=== PATIENT | female | born 2000 | race Caucasian/White ===

== ENCOUNTER 2022-03-17 14:39 | Emergency (ER) | payer OTHER, SELFPAY ==
[2022-03-17 14:43] VITALS: BP 133/81; PULSE 101; RESP 15; TEMP 36.5; O2SAT 100; BMI 21.9
--- NOTE | 2022-03-17 15:28 | ED_ITS ---
HPI - URI/Sore Throat <Bree Villa, [facility] - Last Filed: 03/17/22 17:43> General Chief Complaint: Upper Respiratory Symptoms Stated Complaint: chest congestion, cough, Time Seen by Provider: 03/17/22 14:51 Source: patient Mode of arrival: Ambulatory History of Present Illness HPI Narrative: This is a 21-year-old female presents emergency department with 7 days of upper respiratory illness. She states it started 1 week ago with a sore throat, it has progressed with nasal drainage, fever, chills, states that she had vomited 1 time last night. She has a cough, states that she has copious nasal drainage. 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 She is been taking Sudafed, and Tylenol. States that she has some mild burning in her chest, states that she has a history of anxiety and panic attacks but has not been on Zoloft for 1 year but last night she felt panic and so she took 1 of her Zoloft, she states it did not make her feel very well and she did not sleep afterwards. Related Data Previous Rx's Medication Instructions Recorded amoxicillin 875 mg-potassium 1 tab PO BID 7 days #14 tabs 03/17/22 clavulanate 125 mg tablet benzocaine 15 mg-menthol 3.6 mg 1 melissa mucous membrane Q2-4H PRN 03/17/22 lozenges (Cepacol Sore Throat cough #16 ea (benzocaine-menthol)) cetirizine 10 mg tablet (Zyrtec) 20 mg PO BEDTIME congestion #60 03/17/22 tabs codeine 10 mg-guaifenesin 200 mg/5 5 ml PO Q6H PRN cough #80 mL 03/17/22 mL oral liquid fluticasone propionate 50 1 spray intranasal BID PRN nasal 03/17/22 mcg/actuation nasal congestion #16 grams spray,suspension hydroxyzine HCl 25 mg tablet 25 mg PO TID PRN anxiety #20 tabs 03/17/22 ondansetron 4 mg disintegrating 4 mg PO Q8H PRN nausea and 03/17/22 tablet vomiting #10 tabs Allergies Allergy/AdvReac Type Severity Reaction Status Date / Time No Known Drug Allergies Allergy Verified 03/17/22 14:48 Review of Systems <FORD Wilkinson - Last Filed: 03/17/22 17:43> Review of Systems Narrative: Review of systems is negative for acute abnormalities unless otherwise noted in HPI Patient History <FORD Wilkinson - Last Filed: 03/17/22 17:43> Social History Smoking Status: Unknown if ever smoked Smoking Status: Unknown if ever smoked alcohol intake frequency: holidays/special occasions only Substance Use Type: does not use Exam <FORD Wilkinson - Last Filed: 03/17/22 17:43> Narrative Exam Narrative: Reviewed vitals signs and nursing notes. General: cooperative, comfortable, coughing frequently, mildly uncomfortable, well groomed HEENT: symmetrical facial expressions, moist mucous membranes, patient is coughing frequently, nares are patent, she is congested, mild tonsillar adenopathy, bilateral TM effusions with erythema, bulging on the right, normal landmarks on the left, patient endorses tenderness, mild cervical adenopathy, no mastoid tenderness bilaterally, TMs without rupture Cardiovascular: Tachycardic rate regular rhythm, no peripheral edema, warm extremities Respiratory: normal effort, patient was frequent cough, breath sounds clear throughout all lozano, without retractions, tachypnea, hypoxia, able to speak in complete sentences, without wheezing, stridor, or abnormal breath sounds. Skin: brisk capillary refill, without pallor or erythema Neuro: normal speech and cognition, A&O x3, ambulatory, clear speech Psych: mental status is grossly normal, congruent mood, normal affect, pleasant and cooperative Initial Vital Signs Initial Vital Signs: Vital Signs Temperature 97.7 F 03/17/22 14:43 Pulse Rate 101 H 03/17/22 14:43 Respiratory Rate 15 03/17/22 14:43 Blood Pressure 133/81 03/17/22 14:43 Pulse Oximetry 100 03/17/22 14:43 Oxygen Delivery Method 03/17/22 14:43 <Tristan Michaud DO - Last Filed: 03/18/22 08:40> Initial Vital Signs Initial Vital Signs: Vital Signs Temperature 97.7 F 03/17/22 14:43 Pulse Rate 101 H 03/17/22 14:43 Respiratory Rate 15 03/17/22 14:43 Blood Pressure 133/81 03/17/22 14:43 Pulse Oximetry 100 03/17/22 14:43 Oxygen Delivery Method 03/17/22 14:43 Course <FORD Wilkinson - Last Filed: 03/17/22 17:43> Orders Ordered: Discontinued Medications Amoxicillin/Clavulanate Potassium (Amoxicillin/Clav 875/125 Mg) 1 tab PO NOW ONE Stop: 03/17/22 15:39 Last Admin: 03/17/22 15:50 Dose: 1 tab Documented By: MANPREET Benzonatate (Benzonatate 100 Mg Capsule) 100 mg PO NOW ONE Stop: 03/17/22 15:33 Last Admin: 03/17/22 15:50 Dose: 100 mg Documented By: MANPREET Guaifenesin (Guaifenesin Er 600 Mg Tab) 600 mg PO NOW ONE Stop: 03/17/22 16:27 Last Admin: 03/17/22 16:32 Dose: Not Given Documented By: MANPREET Guaifenesin/Codeine Phosphate (Codeine/Guaifenesin Liquid 5ml Udc) 10 ml PO NOW ONE Stop: 03/17/22 16:29 Last Admin: 03/17/22 16:42 Dose: 10 ml Documented By: MANPREET Hydroxyzine Pamoate (Hydroxyzine Pamoate 25 Mg Capsule) 25 mg PO NOW ONE Stop: 03/17/22 15:33 Last Admin: 03/17/22 15:50 Dose: 25 mg Documented By: MANPREET Ibuprofen (Ibuprofen 400 Mg Tablet) 600 mg PO NOW ONE Stop: 03/17/22 15:33 Last Admin: 03/17/22 15:48 Dose: 600 mg Documented By: MANPREET Ondansetron HCl (Ondansetron 4 Mg Odt) 4 mg SL NOW ONE Stop: 03/17/22 16:27 Last Admin: 03/17/22 16:30 Dose: 4 mg Documented By: MANPREET Vital Signs Vital signs: Vital Signs - 8 hr 03/17/22 14:43 03/17/22 16:10 03/17/22 16:55 Temperature 97.7 F 98.4 F 98.4 F Pulse Rate 101 H 97 H 88 Respiratory Rate 15 17 18 Blood Pressure 133/81 112/67 118/69 Pulse Oximetry 100 100 100 Oxygen Delivery Method Room Air Room Air Room Air <Tristan Michaud DO - Last Filed: 03/18/22 08:40> Orders Ordered: Discontinued Medications Amoxicillin/Clavulanate Potassium (Amoxicillin/Clav 875/125 Mg) 1 tab PO NOW ONE Stop: 03/17/22 15:39 Last Admin: 03/17/22 15:50 Dose: 1 tab Documented By: MANPREET Benzonatate (Benzonatate 100 Mg Capsule) 100 mg PO NOW ONE Stop: 03/17/22 15:33 Last Admin: 03/17/22 15:50 Dose: 100 mg Documented By: MANPREET Guaifenesin (Guaifenesin Er 600 Mg Tab) 600 mg PO NOW ONE Stop: 03/17/22 16:27 Last Admin: 03/17/22 16:32 Dose: Not Given Documented By: MANPREET Guaifenesin/Codeine Phosphate (Codeine/Guaifenesin Liquid 5ml Udc) 10 ml PO NOW ONE Stop: 03/17/22 16:29 Last Admin: 03/17/22 16:42 Dose: 10 ml Documented By: MANPREET Hydroxyzine Pamoate (Hydroxyzine Pamoate 25 Mg Capsule) 25 mg PO NOW ONE Stop: 03/17/22 15:33 Last Admin: 03/17/22 15:50 Dose: 25 mg Documented By: MANPREET Ibuprofen (Ibuprofen 400 Mg Tablet) 600 mg PO NOW ONE Stop: 03/17/22 15:33 Last Admin: 03/17/22 15:48 Dose: 600 mg Documented By: MANPREET Ondansetron HCl (Ondansetron 4 Mg Odt) 4 mg SL NOW ONE Stop: 03/17/22 16:27 Last Admin: 03/17/22 16:30 Dose: 4 mg Documented By: MANPREET Vital Signs Vital signs: Vital Signs - 8 hr 03/17/22 14:43 03/17/22 16:10 03/17/22 16:55 Temperature 97.7 F 98.4 F 98.4 F Pulse Rate 101 H 97 H 88 Respiratory Rate 15 17 18 Blood Pressure 133/81 112/67 118/69 Pulse Oximetry 100 100 100 Oxygen Delivery Method Room Air Room Air Room Air MDM - URI/Sore Throat <FORD Wilkinson - Last Filed: 03/17/22 17:43> Lab Data Labs: Lab Results 10/29/22 10/29/22 Range/Units 14:54 16:14 Urine RBC None seen (0-5/HPF) Urine WBC None seen (0-5/HPF) Urine Bacteria None seen (None) SARS-CoV-2 (PCR) Negative (Negative) Influenza A (RT-PCR) Flu a negative (NEGATIVE) Influenza B (RT-PCR) Flu b negative (NEGATIVE) RSV (PCR) Positive A (Negative) Point of Care Testing Test Results Negative Urine Dip Bedside Urine Glucose Negative Bedside Urine Bilirubin - Negative Bedside Urine Ketone + 15 Urine Specific [place] 1.005 Bedside Urine Occult Blood + Bedside Urine pH 6 Bedside Urine Protein - Negative Bedside Urine Urobilinogen - Negative Bedside Urine Nitrite - Negative Bedside Urine Leukocytes - Negative Esterase ECG Data Interpretation: EKG independently reviewed by myself at reveals sinus tachycardia at [1540] bpm with regular axis and intervals. No STEMI, ST segment changes, arrhythmia, or acute ischemic changes. MDM Narrative Medical decision making narrative: This is a 21-year-old female who presents to the emergency department complaining of upper respiratory illness with recent RSV contact, she has had a cough, fever, sore throat for 7 days, states that she is not sleeping well and has left ear pain. Her respiratory panel PCR was positive for RSV, urine was negative, urine dip was negative for blood, wbc's. Patient also endorses feeling anxiety, she was given hydroxyzine, has copious nasal drainage with postnasal drip, was given ibuprofen for chills, was found to have left TM otitis media, TM is erythematous, suppurative, bulging and patient has anterior cervical lymphadenopathy. She was also given guaifenesin for her frequent cough with posttussive emesis. She is given Zofran for the post-tussive emesis and guaifenesin with codeine syrup for her cough. She is nontoxic appearing, without hypoxia, tachypnea, or acute respiratory distress. She was given a work note. Encouraged hydration, Tylenol ibuprofen, cetirizine was prescribed as well as hydroxyzine for patient's anxiety. Recommend follow-up with her PCP next week. Return for any worsening symptoms. Patient is appropriate and amenable to discharge home. Vital signs are stable on repeat examination is unremarkable. Patient has been informed of results. Patient has been given strict return to ER precautions for any new or worsening symptoms. Patient understands to follow up closely with outpatient providers as instructed. Patient understands plan and agrees to discharge home. All questions and concerns answered at this time. <Tristan Navarretean, DO - Last Filed: 03/18/22 08:40> Lab Data Labs: Lab Results 03/17/22 03/17/22 Range/Units 14:54 16:14 Urine RBC None seen (0-5/HPF) Urine WBC None seen (0-5/HPF) Urine Bacteria None seen (None) SARS-CoV-2 (PCR) Negative (Negative) Influenza A (RT-PCR) Flu a negative (NEGATIVE) Influenza B (RT-PCR) Flu b negative (NEGATIVE) RSV (PCR) Positive A (Negative) Point of Care Testing Test Results Negative Urine Dip Bedside Urine Glucose Negative Bedside Urine Bilirubin - Negative Bedside Urine Ketone + 15 Urine Specific [place] 1.005 Bedside Urine Occult Blood + Bedside Urine pH 6 Bedside Urine Protein - Negative Bedside Urine Urobilinogen - Negative Bedside Urine Nitrite - Negative Bedside Urine Leukocytes - Negative Esterase Discharge Plan Departure Patient Disposition: Home Clinical Impression: Respiratory syncytial virus (RSV), Bilateral acute otitis media, Post-tussive emesis Cough Qualifiers: Cough type: acute Qualified Code(s): R05.1 - Acute cough Fever Qualifiers: Fever type: unspecified Qualified Code(s): R50.9 - Fever, unspecified Instructions: Middle Ear Infection, Respiratory Syncytial Virus, Cough Activity Restrictions/Additional Instructions: *You have been diagnosed with RSV, this is causing your excessive mucus, please start 20 mg of Zyrtec each night, use fluticasone nasal spray morning and night, throat lozenges as needed, please take this antibiotic twice a day for the next 7 days for bilateral otitis media. Please come back if you are having worsening shortness of breath, wheezing, or coughing harder. Use Zofran as needed for nausea. Please take Mucinex for thick mucus and phlegm which makes it difficult to clear. Please stay hydrated, sorry for all of your symptoms. Please take the hydroxyzine as needed for anxiety and panic, it also helps Dr. Uribe and works for nausea. Please use the Zofran tabs as needed for nausea. I have prescribed for you a codeine cough syrup as well hopefully this will help you sleep and reduce the frequency of your cough. *What to do: *Please continue to take your regular medications as directed. [x ] New medication prescriptions sent to your pharmacy: [ [facility]] [ ] New medication written as a paper prescription [ ] No new medications given *Please follow up with your primary care provider in 2-3 days, call for an appointment. Let them know you were seen in the Emergency Department and that we asked that you be seen for follow-up. We will electronically transmit a record of today's note if your PCP is in our system *If you do not have a primary care provider please contact [phone] to establish care with one of the [facility] primary care providers. *Return to Emergency Department if you should have any new, worsening, or concerning symptoms, such as [fever greater than 101F, chills, worsening pain, persistent vomiting or other bothersome symptoms]. Prescriptions: New fluticasone propionate 50 mcg/actuation spray,suspension 1 spray intranasal BID PRN (Reason: nasal congestion) Qty: 16 0RF Rx Instructions: administer into each nostril cetirizine [Zyrtec] 10 mg tablet 20 mg PO BEDTIME Qty: 60 0RF Cepacol Sore Throat (renetta-men) 15-3.6 mg lozenge 1 melissa mucous membrane Q2-4H PRN (Reason: cough) Qty: 16 0RF amoxicillin-pot clavulanate 875-125 mg tablet 1 tab PO BID 7 Days Qty: 14 0RF codeine-guaifenesin 10-200 mg/5 mL liquid 5 ml PO Q6H PRN (Reason: cough) Qty: 80 0RF ondansetron 4 mg tablet,disintegrating 4 mg PO Q8H PRN (Reason: nausea and vomiting) Qty: 10 0RF hydroxyzine HCl 25 mg tablet 25 mg PO TID PRN (Reason: anxiety) Qty: 20 0RF Referrals: Provider,Mike FLYNN [Primary Care Provider] - Stand Alone Forms: Work Release Note Visit Report Forms: Patient Portal/API <Tristan Michaud DO - Last Filed: 03/18/22 08:40> Cosign ED Attending Franklyn Attestation: I was immediately available in the department for consultation. This documentation has been reviewed and I agree with assessment and plan. Supervised by Tristan Michaud DO
[2022-03-17 15:41] LABS: Influenza A - CEPHEID Flu A NEGATIVE (NEGATIVE); Influenza B - CEPHEID Flu B NEGATIVE (NEGATIVE)
[2022-03-17] MEDS: IBUPROFEN 400 MG TABLET 600 MG PO (15:48)
[2022-03-17] MEDS: BENZONATATE 100 MG CAPSULE PO (15:50)
[2022-03-17] MEDS: AMOXICILLIN/CLAV 875/125 MG 1 TAB PO (15:50)
[2022-03-17] MEDS: hydrOXYzine pamoate 25 MG CAPSULE PO (15:50)
[2022-03-17 16:10] VITALS: BP 112/67; PULSE 97; RESP 17; TEMP 36.9; O2SAT 100
[2022-03-17 16:22] LABS: COVID-19 CEPHEID 4-PLEX PCR Negative (Negative)
[2022-03-17 16:23] LABS: Respiratory Syncytial Virus POSITIVE (Negative)
[2022-03-17] MEDS: ONDANSETRON 4 MG ODT SL (16:30)
[2022-03-17] MEDS: CODEINE/GUAIFENESIN LIQUID 5ML UDC 10 ML PO (16:42)
[2022-03-17 16:55] VITALS: BP 118/69; PULSE 88; RESP 18; TEMP 36.9; O2SAT 100
[2022-03-17 17:40] LABS: Bacteria Urine None Seen; RBC Urine None Seen (0-5/HPF); WBC Urine None Seen (0-5/HPF)
== END 2022-03-17 16:59 | disposition home or self-care (01) ==
PROVIDERS: Emergency Medicine; Emergency Provider Nurse Practitioner Critical Care Medicine
DX: J06.9 Acute upper respiratory infection, unspecified (principal); B97.4 Respiratory syncytial virus as the cause of diseases classified elsewhere; R05.1 Acute cough; R50.9 Fever, unspecified; H66.93 Otitis media, unspecified, bilateral; R11.10 Vomiting, unspecified; R07.9 Chest pain, unspecified; Z20.822 Contact with and (suspected) exposure to COVID-19
CPT/HCPCS: 0241U; 81003; 81015; 81025; 87086; 93005; 99283

== ENCOUNTER 2023-05-21 09:45 | Outpatient (RCR) | payer OTHER, SELFPAY ==
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
--- NOTE | 2023-03-07 18:51 | PT.OPPOC ---
Physical, Occupational & Speech Therapy At [facility] Current Diagnoses Other headache syndrome (03/07/23) Unspecified Eustachian tube disorder, bilateral (03/07/23) Otalgia, bilateral (03/07/23) Unspecified temporomandibular joint disorder, unspecified side (03/07/23) Cervicalgia (03/07/23) Abnormal posture (03/07/23) Visit Care Team Role Provider Type Mike FLYNN Provider Primary Care Provider Non-Staff Specialty: Medical Address: Phone: Email: Josep Gomes MD Attending Provider Physician Referring Provider Specialty: Ear, Nose, Throat Address: [address] [place] [address], [id number] Email: [email or web address] Plan Of Care PT-OP-T Assessment and Plan Start: 03/06/23 17:37 Freq: Status: Active Protocol: Document 03/07/23 10:04 [facility] (Rec: 03/07/23 11:10 [facility] [id number]) Physical Therapy Assessment Rehab Potential Rehabilitation Potential Good Goals ROM Short Term Goal (STG) Pt will have full Cervical ROM w/o inc pain or discomfort. STG Duration 04/19/24 Diamond Wheel Molder Goal (LTG) Pt will be able to open jaw w/ o devaition or audible popping or pain in oreder to allow greater ease w/eating. LTG Duration 05/30/23 pain Short Term Goal (STG) Pt will report MENJIVAR no more than 4 days a week STG Duration 04/19/23 Diamond Wheel Molder Goal (LTG) Pt will report MENJIVAR, jaw and neck pain no more than 2/10 during a standard week allowing her to do all typical ADLs w/o inc pain LTG Duration 05/30/23 activities Short Term Goal (STG) pt will be able to prop herself so that she does not wake w/pain greater than 2/10 STG Duration 04/19/24 Group Home Goal (LTG) Pt will be able to yawn and eat any choices of foods w/o inc pain. LTG Duration 05/30/23 Assessment Summary Assessment Pt presents c/o of jaw pain and popping that causes B ear pain, HAs and B neck pain. Pt has been working closely w/ENT and continues to have testing completed, but so far nothing has been found w/testing. She does have sinus pressure also , all which has inc since having RSV and COvid last fall /winter. 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 She has limited the foods she is eating d/t this pain. Pt has fwd head and significant deviation w/S curve w/jaw movements along w/audible crepitis/popping along w/ limited cervical ROM w/pain. Pt would benefit from skilled PT for improving posture and neck/jaw mechanics and stabiltiy in order to dec pain and dec MENJIVAR. Physical Therapy Plan Frequency and Duration Frequency of Treatment 1-2x/week Duration of treatment (weeks) 12 Plan of Care Start Date 03/07/23 Plan of Care End Date 05/30/23 Therapeutic Interventions Therapeutic Interventions Home Exercise Program,Joint Mobilizations,Manual Therapy, Neuromuscular Re-education, Orthotic/Prosthetic Management ,Patient/Caregiver Education, Self-Care/Home Management,Soft Tissue Mobilization,Taping, Therapeutic Activities, Therapeutic Exercises Modalities Cold Pack/Ice Massage,Electric Stimulation,Hot Packs, Infrared Therapy,Traction- Mechanical,Ultrasound Next Visit Focus/Plan Next Note Type Treatment Note Next Visit Plan ligamentous testing to upper cervical, STM to cranium and cervical region, & cranial mobs as tolerated HEP: rows, wall posture, ER B, axial elongation Plan of Care Dates Plan of Care Start Date 03/07/23 Plan of Care End Date 05/30/23 Electronically Signed by: Shira Gomes, PT 03/07/23 [id number] If you are in agreement with this Plan of Care, please return a signed and dated copy. I have reviewed this Plan of Care and certify that the skilled therapy services above are required to meet the patient?s needs. Physician Signature Date Printed Name and Credentials Clinical Instructor Signature Printed Name and Credentials
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
--- OUTSIDE RECORDS SUMMARY | 2023-04-19 14:49 | XMS_ITS | Referral Summary ---
Author Name Unknown Organization [facility] Address [address] [place] [address] Care Team Providers Care Staking Technician Name Role Phone Kesha Leroy Primary Care Provider [phone] Reason for Referral * Consultation (Routine) - Authorized Specialty Diagnoses / Procedures Referred By Kenzie fox Referred To Contact Physical Therapy Diagnoses Otalgia of both ears Temporomandibular joint disorder (TMJ) Josep Gomes MD [address] [place] [id number] [phone] Referral ID Status Reason Start Date Expiration Date Visits Requested Visits Authorized [id number] Authorized Specialty Services Required 01/29/2023 01/24/2024 1 1 * MRI/CAT/PET Scan (Routine) - Authorized Specialty Diagnoses / Procedures Referred By Kenzie fox Referred To Contact Diagnoses Chronic pansinusitis Chronic cough Procedures CT SINUS WITHOUT CONTRAST Josep Gomes MD [address] [place] [id number] [phone] Referral ID Status Reason Start Date Expiration Date Visits Requested Visits Authorized [id number] Authorized Specialty Services Required 01/29/2023 01/24/2024 1 1 * Evaluate and Treat - Authorized Specialty Diagnoses / Procedures Referred By Contac t Referred To Contact Otolaryngology Diagnoses Otalgia of both ears ETD (Eustachian tube dysfunction), bilateral Abnormal auditory perception of right ear Josep Gomes MD [address] [place] [phone] [facility] [address] [place] [phone] Referral ID Status Reason Start Date Expiration Date Visits Requested Visits Authorized [id number] Authorized Specialty Services Required 01/29/2023 01/24/2024 1 1 Reason for Visit * Reason Comments Cough Hearing Loss * Evaluate and Treat (Routine) - Authorized Specialty Diagnoses / Procedures Referred By Contac t Referred To Contact Otolaryngology Diagnoses Unspecified eustachian tube disorder, bilateral Otalgia, unspecified ear Otitis media, unspecified, left ear Kesha Leroy PA [address] [place] [id number] [facility] [address] [place] [phone] Referral ID Status Reason Start Date Expiration Date V isits Requested Visits Authorized [id number] Authorized 10/31/2022 10/31/2023 1 5 Encounter Details Date Type Department Care Team Description 01/29/2023 2:00 PM PDT Office Visit [facility] Ear Nose and Throat [address] [phone] Josep Gomes MD [address] [place] [id number] Otalgia of both ears (Primary Dx); Temporomandibular joint disorder (TMJ); Chronic pansinusitis; Chronic cough; History of COVID-19; ETD (Eustachian tube dysfunction), bilateral; Abnormal auditory perception of right ear Allergies Active Allergy Reactions Criticality Noted Date Comments Prednisone Rash Low 01/29/2023 documented as of this encounter (statuses as of 02/01/2023) Medications Medication Sig Dispensed Refills Start Date End Date Status citalopram (CeleXA) 40 mg tablet 0 12/07/2022 Active omeprazole (PriLOSEC) 20 mg capsule Take 2 capsules (40 mg total) by mouth 2 (two) times a day before meals 0 12/07/2022 Active 06/08, , 1 mg-20 mcg (21)/75 mg (7) per tablet 0 12/07/2022 Active documented as of this encounter (statuses as of 02/01/2023) Active Problems No known active problems documented as of this encounter (statuses as of 02/01/2023) Social History Tobacco Use Types Packs/Day Years Used Date Smoking Tobacco: Never Passive Smoke Exposure: Never Smokeless Tobacco: Never Alcohol Use Standard Drinks/Week Comments Never 0 (1 standard drink = 0.6 oz pur e alcohol) Sex and Gender Information Value Date Recorded Sex Assigned at Not on file Gender Identity Not on file Sexual Orientation Not on file Job Start Date Occupation Industry Not on file Not on file Not on file documented as of this encounter Last Filed Vital Signs Vital Sign Reading Time Taken Comments Blood Pressure 102/68 01/29/2023 1:47 PM PDT Pulse 70 01/29/2023 1:47 PM PDT Temperature - - Respiratory Rate - - Oxygen Saturation 100% 01/29/2023 1:47 PM PDT Inhaled Oxygen Concentration - - Weight 61.5 kg (135 lb 9.6 oz) 01/29/2023 1:47 P M PDT Height 157.5 cm (5' 2) 01/29/2023 1:47 PM PDT Body Mass Index 24.8 01/29/2023 1:47 PM PDT documented in this encounter Progress Notes * Josep Gomes MD - 01/29/2023 2:00 PM PDT Chief Complaint Patient presents with Cough Hearing Loss 01/29/23: 22-year-old female presents with her mother for evaluation of bilateral otalgia and chronic cough. She denies similar problems until diagnosed with RSV 02/2022, then COVID 04/2022, cough is persisted, nonproductive. Bilateral otalgia, frequent urgent care notes beginning 06/25/2022 up in through 11/08/2022. Presumably evidence of middle ear effusion at 1 point but its not clear whether hearing loss was present. She does describe right-sided hearing loss that developed possibly over the last 10 years, normal hearing screening at , subjectively normal hearing in elementary school. No prior audiogram. Facial pain and pressure, no prior imaging, denies other headaches but is definitely sound sensitive. Looking for options. Past Medical History Past Medical History: Diagnosis Date Allergies Anxiety Past Surgical History Past Surgical History: Procedure Laterality Date WISDOM TOOTH EXTRACTION 2020 [place], [place] Family History Family History Problem Relation Age of Onset Diabetes Maternal Grandmother Hypertension Maternal Grandfather Hypertension Paternal Grandfather Bladder Cancer Paternal Grandfather Hearing loss Maternal Great-Grandmother Social History Shante Mueller reports that she has never smoked. She has never been exposed to tobacco smoke. She has never used smokeless tobacco. She reports that she does not drink alcohol and does not use drugs. Review of Systems Review of Systems Constitutional: Negative. HENT: Positive for ear pain, hearing loss, postnasal drip and tinnitus. Eyes: Negative. Respiratory: Positive for cough. Cardiovascular: Negative. Gastrointestinal: Negative. Endocrine: Negative. Genitourinary: Negative. Musculoskeletal: Negative. Skin: Negative. Allergic/Immunologic: Negative. Neurological: Negative. Hematological: Negative. Psychiatric/Behavioral: Negative. Medications Current Outpatient Medications on File Prior to Visit Medication Sig Dispense Refill citalopram (CeleXA) 40 mg tablet 06/08, , 1 mg-20 mcg (21)/75 mg (7) per tablet omeprazole (PriLOSEC) 20 mg capsule Take 2 capsules (40 mg total) by mouth 2 (two) times a day before meals No current facility-administered medications on file prior to visit. Allergies Allergies Allergen Reactions Prednisone Rash Examination: Vital Signs: BP 102/68 (BP Location: Left arm, Patient Position: Sitting) Pulse 70 Ht 1.575 m Wt 61.5 kg SpO2 100% BMI 24.80 kg/m?? CONSTITUTION: General appearance:Well developed and groomed, well nourished. No apparent acute or chronic distress. Ability to communicate: normal, trace articulation issue at times HEAD, FACE, SALIVARY GLANDS AND TMJ: Inspection of Head and Face: Normal contour and symmetry. No masses, lesions, or significant scars observed Facial Mobility: Normal Palpation/Percussion of the Face: No tenderness, deformity or instability Palpation of Parotid and Submandibular glands: Normal TMJs with significant grinding bilaterally EYES: Ocular Motility: gaze appears conjugate in all positions; no evident nystagmus EAR, NOSE, MOUTH AND THROAT: Pinnas and External Nose: Normal External Ear Canals and Tympanic Membranes: Normal Hearing: Conversational speech rarely or never misunderstands words Nasal Interior: Normal septum, turbinates and mucosa Lips, Teeth and Gums: Normal Oral Cavity and Oropharynx: Normal NECK AND THYROID: Neck: symmetrical; trachea midline; normal laryngeal crepitation Thyroid: not palpable NEUROLOGIC: Level of consciousness: awake and alert. Orientation: Normal. Mood and affect: normal and appropriate to the situation. Cranial nerves: Cranial nerves II-XII grossly intact and symmetrical. Assessment/Plan: 1. Otalgia of both ears 2. Temporomandibular joint disorder (TMJ) 3. Chronic pansinusitis 4. Chronic cough 5. History of COVID-19 6. ETD (Eustachian tube dysfunction), bilateral 7. Abnormal auditory perception of right ear Discussed sources of otalgia with grossly normal ear exam, able to ventilate as well. I recommend an audiogram to evaluate her subjective right hearing loss that may be chronic and relevant. Her obvious TMJ dysfunction may benefit from physical therapy as they await more definitive evaluation presumably by a specialist, willing to begin. I am concerned about underlying chronic sinusitis to explain her facial pain that has not resolved since RSV/COVID, will order sinus CT, results will guide changer. If clear would be highly suspicious of a primary headache disorder manifesting as facial pain only. She will discuss with her PCP a trial of inhaler either albuterol or a controller medication at least for a period of time as she points to her chest as the source of cough. I do think things can be better for her. documented in this encounter Plan of Treatment Upcoming Encounters Date Type Department Care Team Description 04/03/2023 8:10 AM PST Office Visit [facility] Ear N[facility] and Throat [address] [phone] Josep Gomes MD [address] [place] [id number] 06/06/2023 8:00 AM PST Procedure visit [facility] Th[facility]at [address] [phone] Josep Gomes MD [address] [place] [phone] Raquel Roberts AuD [address] [phone] 06/06/2023 8:50 AM PST Office Visit [facility] Ear Nose and Throat [address] [phone] Josep Gomes MD [address] [place] [address] [phone] Scheduled Orders Name Type Priority Associated Diagnoses Orde r Schedule CT SINUS WITHOUT CONTRAST Imaging Routine Chronic pansinusitis Chronic cough Expected: 01/29/2023, Expires: 04/30/2024 Scheduled Referrals Name Type Priority Associated Diagnoses Order Schedule Ambulatory referral to Audiology Outpatient Referral Routine Otalgia of both ears ETD (Eustachian tube dysfunction), bilateral Abnormal auditory perception of right ear Ordered: 01/29/2023 XTRNL Referral to Physical Therapy Outpatient Referral Routine Otalgia of both ears Temporomandibular joint disorder (TMJ) 1 Occurrences starting 01/29/2023 until 01/30/2024 documented as of this encounter Visit Diagnoses Diagnosis Otalgia of both ears- Primary Temporomandibular joint disorder (TMJ) Chronic pansinusitis Other chronic sinusitis Chronic cough Cough History of COVID-19 ETD (Eustachian tube dysfunction), bilateral Abnormal auditory perception of right ear documented in this encounter Care Teams Staking Technician Relationship Specialty Start Date End Date Kesha Leroy PA [facility] [address] [place] [address] PCP - General Physician Customer Assistance Associate Medical 11/14/22 documented as of this encounter
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
--- NOTE | 2023-05-21 10:35 | PT.OPPOC ---
Physical, Occupational & Speech Therapy At [facility] Current Diagnoses Other headache syndrome (05/21/23) Unspecified Eustachian tube disorder, bilateral (05/21/23) Otalgia, bilateral (05/21/23) Unspecified temporomandibular joint disorder, unspecified side (05/21/23) Cervicalgia (05/21/23) Abnormal posture (05/21/23) Visit Care Team Role Provider Type Mike FLYNN Provider Primary Care Provider Non-Staff Specialty: Medical Address: Phone: Email: Josep Gomes MD Attending Provider Physician Referring Provider Specialty: Ear, Nose, Throat Address: [address] [place] [address], [id number] Email: [email or web address] Plan Of Care PT-OP-T Assessment and Plan Start: 03/06/23 17:37 Freq: Status: Active Protocol: Document 05/21/23 09:47 [facility] (Rec: 05/21/23 10:34 [facility] [id number]) Physical Therapy Assessment Goals ROM Short Term Goal (STG) Pt will have full Cervical ROM w/o inc pain or discomfort. 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 LTG Duration 07/24/23 pain Short Term Goal (STG) Pt will report MENJIVAR no more than 4 days a week 04/30- pt has dec MENJIVAR to about once a month now STG Duration Achieved Nursing Home Goal (LTG) Pt will report MENJIVAR, jaw and neck pain no more than 2/10 during a standard week allowing her to do all typical ADLs w/o inc pain 04/30- still 7/10 pain when at worst, always behind ears 1/2-MENJIVAR now when reason (dec sleep, dyhydrated etc); neck pain-3/10; jaw pain 6/10 LTG Duration 07/24/23 activities Short Term Goal (STG) pt will be able to prop herself so that she does not wake w/pain greater than 2/10 04/30- still wakes up with same d/t clenching STG Duration achieved Nursing Home Goal (LTG) Pt will be able to yawn and eat any choices of foods w/o inc pain. 1/-no change LTG Duration 07/24/23 Assessment Summary Assessment Pt is making excellent progress w/PT and has much dec in MENJIVAR and neck pain, but still signfiicant jaw pain and popping that inc w/eating and yawning. She cont to have S curve w/opening and significant ant shearing taht did improve after manual. Pt to cont PT to focus on dec jaw pain and improve ability to eat. Physical Therapy Plan Frequency and Duration Frequency of Treatment 1-2x/week Duration of treatment (weeks) 8 Plan of Care Start Date 05/21/23 Plan of Care End Date 07/24/23 Therapeutic Interventions Therapeutic Interventions Home Exercise Program,Joint Mobilizations,Manual Therapy, Neuromuscular Re-education, Orthotic/Prosthetic Management ,Patient/Caregiver Education, Self-Care/Home Management,Soft Tissue Mobilization,Taping, Therapeutic Activities, Therapeutic Exercises Modalities Cold Pack/Ice Massage,Electric Stimulation,Hot Packs, Infrared Therapy,Traction- Mechanical,Ultrasound Next Visit Focus/Plan Next Note Type Treatment Note Next Visit Plan focus on jaw mobility and stability Plan of Care Dates Plan of Care Start Date 05/21/23 Plan of Care End Date 07/24/23 Electronically Signed by: Shira Gomes, PT 05/21/23 4195 If you are in agreement with this Plan of Care, please return a signed and dated copy. I have reviewed this Plan of Care and certify that the skilled therapy services above are required to meet the patient?s needs. Physician Signature Date Printed Name and Credentials Clinical Instructor Signature Printed Name and Credentials
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
== END 2023-07-30 07:47 | disposition home or self-care (01) ==
LOC: PHYS 09:45
PROVIDERS: Referring Provider Otolaryngology; Visit Provider Otolaryngology
DX: M26.609 Unspecified temporomandibular joint disorder, unspecified side (principal); H92.03 Otalgia, bilateral; H69.93 Unspecified Eustachian tube disorder, bilateral; M54.2 Cervicalgia; R29.3 Abnormal posture; G44.89 Other headache syndrome
CPT/HCPCS: 97110; 97140; 97162